=== PATIENT | female | born 1960 | race Caucasian/White ===

== ENCOUNTER 2018-09-09 00:29 | Outpatient (CLI) | payer OTHER, SELFPAY ==
--- NOTE | 2018-09-09 13:40 | DI.MAMMO_ITS ---
SYMPTOMS/DIAGNOSIS: SCREENING, Z12.31 MAMMOGRAM: Mammograms were interpreted according to the usual protocol including computer analysis with CAD system, tomosynthesis and C view imaging. The breasts are of moderate density with fairly symmetrical distribution of fibroglandular tissue. No dominant mass or clumped microcalcification is identified in either breast. Current examination is compared with the previous examinations including July 2015 and there has been no gross interval change in appearance in comparison with the previous studies. CONCLUSION: No specific evidence of malignancy at this time. Routine screening examinations are suggested at yearly intervals in this age group according to the ACS/ACR guidelines. Category 1, breast density category B. MQSA ASSESSMENT OF FINDINGS: Negative. Category 1. Patient will receive a letter notifying them of these results. BI-RADS category B. There are scattered areas of fibroglandular density.
== END 2018-09-09 00:49 ==
PROVIDERS: PCP Student in an Organized Health Care Education/Training Program; Visit Provider Student in an Organized Health Care Education/Training Program
DX: Z12.31 Encounter for screening mammogram for malignant neoplasm of breast (principal)
CPT/HCPCS: 77063; 77067

== ENCOUNTER 2018-11-30 12:39 | Outpatient (REF) | payer OTHER, SELFPAY | END 2018-11-30 12:59 | LOC: LBN 12:39 | PROVIDERS: PCP Student in an Organized Health Care Education/Training Program; Visit Provider Student in an Organized Health Care Education/Training Program | DX: R10.2 Pelvic and perineal pain (principal) | CPT/HCPCS: 87086 ==

== ENCOUNTER 2019-03-27 12:23 | Outpatient (REF) | payer OTHER, SELFPAY | END 2019-03-27 12:43 | LOC: LBN 12:23 | PROVIDERS: PCP Student in an Organized Health Care Education/Training Program; Visit Provider Nurse Practitioner | DX: R30.0 Dysuria (principal); R82.90 Unspecified abnormal findings in urine | CPT/HCPCS: 87077; 87086; 87186 ==

== ENCOUNTER 2019-04-03 12:05 | Outpatient (CLI) | payer OTHER, SELFPAY ==
[2019-04-03 12:25] LABS: Abs Immature Grans 0.02 k/cumm (0.0-0.09); Absolute Basophil Count 0.05 k/cumm (0.0-0.2); Absolute Eosinophil Count 0.45 k/cumm (0.0-0.7); Absolute Lymphocyte Count 0.72 k/cumm (1.2-3.4); Absolute Monocyte Count 0.46 k/cumm (0.11-0.7); Absolute Neutrophil Count 6.25 k/cumm (1.2-6.7); Basophils % 0.6; Eosinophils % 5.7; Immature Grans % 0.3; Lymphocytes % 9.1; Mean Corp. HGB Concentration 34.2 g/dL (32.0-36.0); Mean Corpuscular Hemoglobin 32.3 pg (27.0-33.0); Mean Corpuscular Volume 94.3 fL (80-95); Mean Platelet Volume 9.1 fL (8.0-11.0); Monocytes % 5.8; Neutrophils % 78.5; Platelet Count 278 x1000/uL (130-400); RBC 4.03 m/cumm (4.00-5.20); RBC Distribution Width 12.5 % (11.7-14.6); White Blood Cell Count 7.95 k/cumm (4.4-10.8)
[2019-04-05 21:21] LABS: Parvovirus B19 Ab, IgG Positive (Negative); Parvovirus B19 Ab, IgM Negative (Negative)
== END 2019-04-03 12:25 ==
PROVIDERS: PCP Student in an Organized Health Care Education/Training Program; Visit Provider Nurse Practitioner
DX: M25.50 Pain in unspecified joint (principal); R21 Rash and other nonspecific skin eruption; R50.9 Fever, unspecified
CPT/HCPCS: 36415; 85025; 86747

== ENCOUNTER 2019-12-21 10:39 | Outpatient (REF) | payer OTHER, SELFPAY ==
[2019-12-21 12:26] LABS: HCT 37.9 % (36.0-46.0); HGB 12.8 g/dL (12.0-15.5); Mean Corp. HGB Concentration 33.8 g/dL (32.0-36.0); Mean Corpuscular Hemoglobin 31.8 pg (27.0-33.0); Mean Platelet Volume 9.6 fL (8.0-11.0); Platelet Count 321 x1000/uL (130-400); RBC 4.03 m/cumm (4.00-5.20)
[2019-12-21 12:43] LABS: ALT 25 U/L (14-59); AST 15 U/L (15-37); Albumin 4.4 g/dL (3.4-5.0); Alkaline Phosphatase 76 U/L (46-116); Anion Gap 8.7 mmol/L (3-11); BUN 11 mg/dL (7-18); Bilirubin, Total 0.7 mg/dL (0.2-1.0); CO2 29.3 mmol/L (21.0-32.0); CREATININE 0.53 mg/dL (0.55-1.02); Calcium 9.5 mg/dL (8.5-10.1); Calculated LDL 184 mg/dL (<100); Chloride 103 mmol/L (98-107); Cholesterol 273 mg/dL (<200); Ferritin 94 ng/mL (8-252); Glucose 95 mg/dL (74-106); HDL Cholesterol 72 mg/dL (40-60); Sodium 141 mmol/L (136-145); TSH (W/Ref FT4) 1.52 uIU/mL (0.36-3.74); Total Protein 7.5 g/dL (6.4-8.2); Triglyceride 88 mg/dL (<150)
== END 2019-12-21 10:59 ==
LOC: LBO 10:39
PROVIDERS: PCP Student in an Organized Health Care Education/Training Program; Visit Provider Student in an Organized Health Care Education/Training Program
DX: Z13.220 Encounter for screening for lipoid disorders (principal); E86.0 Dehydration; I99.9 Unspecified disorder of circulatory system; R53.83 Other fatigue; G25.81 Restless legs syndrome; R68.89 Other general symptoms and signs
CPT/HCPCS: 80053; 80061; 85027; 82728; 83735; 84443

== ENCOUNTER 2020-06-25 03:37 | Outpatient (CLI) | payer OTHER, SELFPAY ==
--- NOTE | 2020-06-25 07:30 | DI.US_ITS ---
EXAM: US ABD PELV TRANSVAG NON-OB CLINICAL HISTORY: pelvic pressure 2 mos. S/p hys. Ovaries intact.abd pain,r10.9,mid to low TECHNIQUE: Ultrasound of the abdomen, pelvic, both abdmonal and tranvaginal was performed using sta ndard protocol. COMPARISON: No exams were available for comparison FINDINGS: LIVER: Normal. GALLBLADDER: No evidence of cholelithiasis. No evidence of wall thickening. No pericholecystic fluid identified. KIDNEYS: Kidneys are symmetric in size. No evidence of renal calculi. No evidence of hydronephrosis. No renal mass or cyst identified. BILIARY SYSTEM: Common bile duct measures 9 mm. It is well seen to the head of the pancreas. No sto enoc are visible. No intrahepatic biliary ductal dilation. MONROE'S SIGN: Negative. PANCREAS: Normal where visualized. SPLEEN: Not enlarged. ABDOMINAL AORTA AND IVC: Visualized portions normal caliber. ASCITES: None seen. UTERUS: Status post hysterectomy. OVARIES: Only seen transabdominally. Right: 2.0 x 1.3 x 1.0 cm Cyst or mass: None. Left: 2.1 x 0.8 x 1.3 cm Cyst or mass: None. DOPPLER: Color: Symmetric and uniform flow to both ovaries. No hyperemia. Duplex: Normal ovarian arterial waveforms visualized. CUL-DE-SAC: Free fluid: None. IMPRESSION: 1. Mild dilatation of the common bile duct. No visible obstructing stone or mass.. 2. Status post hysterectomy. 3. Unremarkable bilateral ovaries. DATA REPOSITORY:
== END 2020-06-25 03:57 ==
PROVIDERS: PCP Student in an Organized Health Care Education/Training Program; Visit Provider Nurse Practitioner
DX: R10.2 Pelvic and perineal pain (principal); R10.9 Unspecified abdominal pain
CPT/HCPCS: 76700; 76830; 76856

== ENCOUNTER 2020-11-08 01:38 | Outpatient (CLI) | payer OTHER, SELFPAY ==
[2020-11-08 20:40] LABS: COVID-19 RT-PCR UVMMC Result Negative (Negative)
== END 2020-11-08 01:58 ==
PROVIDERS: PCP Student in an Organized Health Care Education/Training Program; Visit Provider Nurse Practitioner
DX: Z11.52 Encounter for screening for COVID-19 (principal)
CPT/HCPCS: U0003

== ENCOUNTER 2021-01-16 03:11 | Outpatient (CLI) | payer OTHER, SELFPAY ==
[2021-01-16 22:20] LABS: COVID-19 RT-PCR UVMMC Result Negative (Negative)
== END 2021-01-16 03:12 | disposition home or self-care (01) ==
LOC: LBO 03:11
PROVIDERS: PCP Student in an Organized Health Care Education/Training Program; Visit Provider Nurse Practitioner
DX: Z20.822 Contact with and (suspected) exposure to COVID-19 (principal)
CPT/HCPCS: U0003

== ENCOUNTER 2021-02-20 03:29 | Outpatient (CLI) | payer OTHER, SELFPAY ==
[2021-02-20 08:42] LABS: ESR 3 mm//hr (0-30)
[2021-02-20 08:43] LABS: HCT 37.4 % (36.0-46.0); HGB 12.4 g/dL (11.2-15.7); MCHC 33.2 % (32.0-36.0); MCV 96.4 fL (80-95); MPV 9.6 fL (8.0-11.0); Platelet Count 274 10^3/uL (130-400); RBC 3.88 10^6/uL (3.93-5.22); RDW 12.6 % (11.7-14.6); WBC 4.69 10^3/uL (4.4-10.8)
[2021-02-20 12:33] LABS: ALT 35 U/L (14-59); AST 23 U/L (15-37); Albumin 4.1 g/dL (3.4-5.0); Alkaline Phosphatase 68 U/L (46-116); BUN 11 mg/dL (7-18); Bilirubin, Total 0.6 mg/dL (0.2-1.0); CREATININE 0.6 mg/dL (0.55-1.02); Calcium 9.3 mg/dL (8.5-10.1); Calculated LDL 167 mg/dL (<100); Chloride 105 mmol/L (98-107); Cholesterol 246 mg/dL (<200); Ferritin 68 ng/mL (8-252); Glucose 84 mg/dL (74-106); HDL Cholesterol 57 mg/dL (40-60); Potassium 4.2 mmol/L (3.5-5.1); Sodium 141 mmol/L (136-145); TSH (W/Ref FT4) 2.41 uIU/mL (0.36-3.74); Total Protein 7.2 g/dL (6.4-8.2); Triglyceride 113 mg/dL (<150); Vitamin B12 435 pg/mL (193-986)
[2021-02-20 12:44] LABS: Creatine Kinase 57 U/L (26-192)
[2021-02-20 12:47] LABS: C-Reactive Protein < 0.05 mg/dL (0.0-0.3)
[2021-02-21 15:00] LABS: ANA Interpretation Positive (Negative); ANA Titer Pattern 1:320 Homogeneous
== END 2021-02-20 03:30 | disposition home or self-care (01) ==
LOC: LBO 03:30
PROVIDERS: PCP Student in an Organized Health Care Education/Training Program; Visit Provider Nurse Practitioner
DX: E78.5 Hyperlipidemia, unspecified (principal); M25.50 Pain in unspecified joint; R25.2 Cramp and spasm; G25.81 Restless legs syndrome
CPT/HCPCS: 36415; 80053; 80061; 82550; 85027; 85652; 82607; 82728; 84443; 86038; 86140

== ENCOUNTER 2021-03-28 02:13 | Outpatient (CLI) | payer OTHER, SELFPAY ==
--- NOTE | 2021-03-28 07:30 | DI.MAMMO_ITS ---
Exam(s) MAMMO SCREENING EXAM: MAMMO SCREENING CLINICAL HISTORY: screening, Z12.39. TECHNIQUE: Bilateral full field digital CC and MLO mammographic images were obtained with 3D tomosyn thesis and utilizing computer aided detection (CAD). COMPARISON: Prior mammograms dating back to 2011, the most recent being August 2018. FINDINGS: There has been no significant change in the appearance and distribution of the fibroglandular tissue. Asymmetric tissue upper-outer quadrant right breast is unchanged from prior studies. There are no new spiculated masses nor malignant appearing microcalcification groups. There is no new significant architectural distortion nor skin thickening-retraction. IMPRESSION: No radiographic evidence of malignancy. Stable benign findings BI-RADS Category 2 - Benign Findings Breast Density - Category B - Scattered areas of fibroglandular density Breast density Category C or D implies that the patient has dense breast tissue. Dense breast tissue can make it harder to find cancer on a mammogram. Dense breast tissue is also associated with an incr eased risk of breast cancer. This information about the result of the mammogram report was provided to the patient to raise their awareness. Use this report when you speak with the patient about their risks for breast cancer, which includes their family history. At that time, you may recommend additional screening tests (Ultrasoun d or MRI) as these tests may add significant information. A negative radiographic report should not delay biopsy if a dominant or clinically suspicious mass is present. Up to ten percent of cancers are not identified on mammography. A negative report may reinforce clinical impression. Adenosis and dense breasts may obscure an underlying neoplasm. False positive reports average 6 to 10%. Patient will receive a letter notifying them of these results.
== END 2021-03-28 02:33 ==
PROVIDERS: PCP Student in an Organized Health Care Education/Training Program; Visit Provider Nurse Practitioner
DX: Z12.31 Encounter for screening mammogram for malignant neoplasm of breast (principal)
CPT/HCPCS: 77063; 77067

== ENCOUNTER → 2022-03-21 11:11 | Outpatient (CLI) | payer OTHER, SELFPAY ==
--- NOTE | 2022-03-21 | DI.RAD_ITS ---
Exam(s) XR CHEST 2V PA LATERAL EXAM: XR CHEST 2V PA LATERAL CLINICAL HISTORY: Wheezing, SOB, r/o pneumonia.. TECHNIQUE: 2D digital imaging was performed. COMPARISON: CR CHEST 2 VIEWS PA,LAT from 11/16/2017 FINDINGS: 2 views: Heart size is normal. The mediastinum is not widened. Lungs are clear. No infiltrates nor pleural effusions. IMPRESSION: No acute pulmonary findings. DATA REPOSITORY: RADIATION DOSE DELIVERED:
--- NOTE | 2022-03-21 11:43 | DI.VRAD_ITS ---
PROCEDURE INFORMATION: Exam: XR Chest Exam date and time: 03/21/2022 11:20 AM Age: 61 years old Clinical indication: Cough and shortness of breath and wheezing TECHNIQUE: Imaging protocol: XR of the chest. Views: 2 views. COMPARISON: CR CHEST 2 VIEWS PA,LAT 11/16/2017 9:56 PM FINDINGS: Lungs: Unremarkable. No consolidation. Pleural spaces: Unremarkable. No pleural effusion. No pneumothorax. Heart/Mediastinum: Unremarkable. No cardiomegaly. Bones/joints: Unremarkable. IMPRESSION: No acute findings. Dictated and Authenticated by: Tank Bartholomew MD. Ordering:YOANA Carvajal MD
== END ==
PROVIDERS: PCP Student in an Organized Health Care Education/Training Program; Visit Provider Nurse Practitioner
DX: R06.02 Shortness of breath (principal); R06.2 Wheezing
CPT/HCPCS: 71046

== ENCOUNTER → 2022-05-18 01:45 | Outpatient (CLI) | payer OTHER, SELFPAY ==
--- NOTE | 2022-05-18 06:45 | DI.MAMMO_ITS ---
Exam(s) MAMMO SCREENING EXAM: MAMMO SCREENING CLINICAL HISTORY: screening,z12.39 TECHNIQUE: Mammograms were interpreted according to the usual protocol including computer analysis w [employer] CAD system, tomosynthesis and C-view imaging. COMPARISON: FINDINGS: The breasts are of moderate density with fairly symmetrical distribution of fibroglandular tissue. N o dominant mass or clumped microcalcification is identified in either breast. The current examinatio n is compared with previous examinations including March 2021 and there has been no gross interval gaudencio nge in appearance in comparison with the prior studies. IMPRESSION: No specific evidence of malignancy at this time. Routine screening examinations are suggested at yea rly intervals in this age group according to the ACS ACR guidelines. BI-RADS Category 1 - Negative Breast Density - Category B - Scattered areas of fibroglandular density
== END ==
PROVIDERS: PCP Student in an Organized Health Care Education/Training Program; Visit Provider Student in an Organized Health Care Education/Training Program
DX: Z12.31 Encounter for screening mammogram for malignant neoplasm of breast (principal)
CPT/HCPCS: 77063; 77067

== ENCOUNTER 2022-05-18 03:48 | Outpatient (CLI) | payer OTHER, SELFPAY ==
[2022-05-18 08:58] LABS: HCT 36.3 % (36.0-46.0); HGB 12.6 g/dL (11.2-15.7); MCH 32.8 pg (27.0-33.0); MCHC 34.7 % (32.0-36.0); MCV 95 fL (80-95); MPV 9.6 fL (8.0-11.0); Platelet Count 287 10^3/uL (130-400); RBC 3.84 10^6/uL (3.93-5.22); RDW 12.3 % (11.7-14.6); RDW-SD 42.3 fL; WBC 3.92 10^3/uL (4.4-10.8)
[2022-05-18 09:50] LABS: Iron 64 ug/dL (50-170); Total Iron Binding Capacity 319 ug/dL (250-450); Transferrin Sat 20 % (15-50)
[2022-05-18 10:15] LABS: Vitamin D 25 Total 52.2 ng/mL (30-100)
[2022-05-18 10:54] LABS: ALT 25 U/L (14-59); AST 15 U/L (15-37); Albumin 4.2 g/dL (3.4-5.0); Alkaline Phosphatase 71 U/L (46-116); Anion Gap 8.9 mmol/L (3-11); BUN 11 mg/dL (7-18); Bilirubin, Total 0.6 mg/dL (0.2-1.0); CO2 27.1 mmol/L (21.0-32.0); CREATININE 0.7 mg/dL (0.55-1.02); Calcium 9.3 mg/dL (8.5-10.1); Calculated LDL 168 mg/dL (<100); Chloride 104 mmol/L (98-107); Cholesterol 253 mg/dL (<200); Glucose 88 mg/dL (74-106); HDL Cholesterol 64 mg/dL (40-60); Potassium 3.4 mmol/L (3.5-5.1); Sodium 140 mmol/L (136-145); TSH (W/Ref FT4) 3.31 uIU/mL (0.36-3.74); Total Protein 7.6 g/dL (6.4-8.2); Triglyceride 108 mg/dL (<150); Vitamin B12 582 pg/mL (193-986)
[2022-05-18 10:55] LABS: Folate > 20.0 ng/mL (8.6-20.0)
== END 2022-05-18 03:49 | disposition home or self-care (01) ==
LOC: LBO 03:49
PROVIDERS: PCP Student in an Organized Health Care Education/Training Program; Visit Provider Student in an Organized Health Care Education/Training Program
DX: F41.1 Generalized anxiety disorder (principal); G47.00 Insomnia, unspecified; R53.83 Other fatigue; G25.81 Restless legs syndrome; G47.9 Sleep disorder, unspecified; K90.9 Intestinal malabsorption, unspecified; Z82.49 Family history of ischemic heart disease and other diseases of the circulatory system; Z86.2 Personal history of diseases of the blood and blood-forming organs and certain disorders involving the immune mechanism; Z13.220 Encounter for screening for lipoid disorders; G62.9 Polyneuropathy, unspecified; E87.8 Other disorders of electrolyte and fluid balance, not elsewhere classified; Z91.89 Other specified personal risk factors, not elsewhere classified
CPT/HCPCS: 36415; 80053; 80061; 82306; 85027; 82607; 82746; 83540; 83550; 84443

== ENCOUNTER 2022-09-25 06:51 | Emergency (ER) | payer OTHER, SELFPAY ==
[2022-09-25 07:00] VITALS: BP 102/70; PULSE 94; RESP 22; TEMP 37.2; O2SAT 96
--- NOTE | 2022-09-25 07:48 | ED.GENADUL_ITS ---
Discharge Plan Disposition Patient Disposition: Home Discharge Details Clinical Impression: Influenza A Primary Care Provider: Sejal Givens ED Provider: Gary Antunez Home Meds and New Rx's Prescriptions: No Action ascorbate calcium (vitamin C) 500 mg tablet 1 g PO DAILY lysine [L-Lysine] 500 mg tablet 1,000 mg PO DAILY Rx Instructions: cold sore prevention L-Glutamine 500 mg capsule 1,000 mg PO DAILY Rx Instructions: gut health Saccharomyces boulardii [Daily Probiotic (S. boulardii)] 250 mg capsule 250 mg PO DAILY Rx Instructions: refrigerated red yeast rice 600 mg capsule 1,200 mg PO DAILY Rx Instructions: give with meal/snack Balanced B-100 Complex 100 mg tablet extended release PO Natural Vegetable (psyllium) Powder 1 tbsp PO DAILY Rx Instructions: mix into at least 8 oz of water or juice before administering fluticasone propionate [Flonase Allergy Relief] 50 mcg/actuation spray,suspension 2 spray intranasal DAILY PRN (Reason: allergy symptoms) Rx Instructions: administer into each nostril lorazepam 1 mg tablet 1 mg PO DAILY PRN (Reason: panic episode) Qty: 20 1RF cholecalciferol (vitamin D3) 50 mcg (2,000 unit) tablet 2,000 unit PO DAILY Label Comments: 12/21/19- takes between 2000-4000units daily. valacyclovir 1 gram tablet 2,000 mg PO BID PRN (Reason: cold sores) Qty: 40 3RF trazodone 100 mg tablet 100 mg PO HS PRN (Reason: sleep) Qty: 90 3RF Discharge Instructions Instructions: H1N1 Influenza (ED) Additional Instructions: Make sure you suppress the fever with Tylenol or Motrin. Please push fluids as much as possible. You want to remain well-hydrated. Medical Decision Making Medical Records Medical records narrative: Patient is a positive for influenza a. She is approximately 3-1/2 days into the illness. I had a discussion with her regarding the pros and cons of Tamiflu at this point. I do not believe and she agrees and she is Tamiflu candidate. She has for cough suppressant. I reiterated that cough is the way the body fights infection. Chest x-ray does not reveal any abnormalities. She will be sent home with supportive care. Sign Out No HPI General Date/Time Provider Initiated Documentation: 09/25/22 07:00 . HPI Narrative: 63-year-old lady presented to the emergency room for evaluation of malaise and illness x3 days. She states that 3 days ago she started coughing and developed some fevers. She is also developed some shortness of breath since yesterday. She is COVID vaccinated as well as influenza vaccinated. She actually got sick proxy 1 month ago when her grandchildren came to visit her but he had some kind of upper respiratory syndrome. She cough for approximately 3 weeks and that tapered off but restarted 3 days ago. She is also fatigued. Mild lightheaded. She states that she has been coughing so much that her abdominal muscles now hurt and she states that she may have pulled her back. She has taken some ibuprofen for the fevers which helps. Her p.o. intake has decreased. She states she is trying to keep up with fluids Related Data Home Medications Medication Instructions Recorded Confirmed cholecalciferol (vitamin D3) 50 2,000 unit PO DAILY 12/21/19 09/25/22 mcg (2,000 unit) tablet valacyclovir 1 gram tablet 2,000 mg PO BID PRN cold sores #40 02/13/21 09/25/22 tabs Saccharomyces boulardii 250 mg 250 mg PO DAILY 04/03/21 09/25/22 capsule (Daily Probiotic (S. boulardii)) ascorbate calcium (vitamin C) 500 1 g PO DAILY 04/03/21 09/25/22 mg tablet glutamine 500 mg capsule 1,000 mg PO DAILY 04/03/21 09/25/22 (L-Glutamine) lysine 500 mg tablet (L-Lysine) 1,000 mg PO DAILY 04/03/21 09/25/22 psyllium (Natural Vegetable 1 tbsp PO DAILY 04/03/21 09/25/22 (psyllium) oral powder) red yeast rice 600 mg capsule 1,200 mg PO DAILY 04/03/21 09/25/22 vit B complex 100 combo no.2 100 tab PO 04/03/21 05/04/22 mg tablet,extended release (Balanced B-100 Complex) trazodone 100 mg tablet 100 mg PO HS PRN sleep #90 tabs 02/19/22 09/25/22 fluticasone propionate 50 2 spray intranasal DAILY PRN 07/01/22 12/09/22 mcg/actuation nasal allergy symptoms spray,suspension (Flonase Allergy Relief) lorazepam 1 mg tablet 1 mg PO DAILY PRN panic episode 04/20/22 09/25/22 #20 tabs Previous Rx's Medication Instructions Recorded valacyclovir 1 gram tablet 2,000 mg PO BID PRN cold sores #40 02/13/21 tabs trazodone 100 mg tablet 100 mg PO HS PRN sleep #90 tabs 02/19/22 lorazepam 1 mg tablet 1 mg PO DAILY PRN panic episode 04/20/22 #20 tabs Allergies Allergy/AdvReac Type Severity Reaction Status Date / Time No Known Allergies Allergy Verified 09/25/22 07:05 General Stated Complaint: RespSymp WILLY: 3 Review of Systems Narrative: Constitutional positive for fatigue and malaise positive for fevers and chills HEENT mild sore throat Cardiovascular no palpitations no chest pain Respiratory see HPI GI no nausea no vomiting. Abdominal pain no diarrhea no dysuria no frequency no hematuria MSK myalgias and arthralgias Skin no rash Neuro mild headaches. No paresthesias no focal weakness Psych mild anxiety no depression Endo no unexplained weight gain or weight loss Hematological not on blood thinners no easy bleeding. PFSH All Active Problems (Updated 09/25/22 @ 08:29 by Gary Antunez MD) Influenza A (Acute) At risk for osteoporosis (Acute) Neuropathy (Acute) Malabsorption (Acute) Family history of cardiovascular disease (Acute) Insomnia (Acute) Long Hx .. with some relief w/ Trazadone, but no longer working. Restless sleeper (Acute) Dizziness (Acute) Nasal congestion (Acute) Facial pressure (Acute) Facial pain (Acute) Anxiety state, unspecified (Acute) Hx SSRI (Prozac) w/ poor tolerance .. 1/2 dose lorazepam helping with rest/sleep .. 1-2/week. Complicated grieving (Acute) Brother 04/2021, after months of difficult ([facility] drove to [facility] weekly x months). 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 ~2005 History of tonsillectomy and adenoidectomy Vaginal hysterectomy (10/18/02) not exact date-LH Family History Mother , lung ca at age 57. Lung cancer Father , [place] at age 66. Diabetes Heart disease Hypertension Congestive heart failure Social History (Updated 04/17/22 @ 09:45 by Melany Elizabeth RN) Smoking/Tobacco Use Status: Former Tobacco Use Quit Date: 10/18/93 Pack-years: 18 Tobacco: How many years used: 18 Smoking risk assessment performed?: Yes Alcohol Intake: current Alcohol Intake frequency: a few times a month Drug use: Never Substance use type: does not use Adopted: No Caregiver/Support person: No Foster care: No Household members: spouse and other Details: [id number] Housing: house Number of Children: 3 number of grandchildren: 4 Communication Needs: Corrective Lenses Education Level: 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 Do you need help understanding health information?: Never Pets and animals: Yes Pets and animals: dog(s) Sexually active: Yes Do you think of yourself as: bisexual Current gender identity: female What is your relationship status?: How often do you talk on the phone with friends or family?: once per week How often do you get together with friends or relatives?: three or more times per week Do you belong to any clubs or organized social groups?: no Panel score (0-1 are the most socially isolated patients): 2 What type of physical activity do you participate in: walking and yoga Duration: 30-45 minutes/day Frequency: 3-4 times per week Esha/Nondenominational: None Special esha needs: No Seatbelt use: always Helmet use: Yes Drive intox or ride w/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: No Working smoke detector in home: Yes Fire extinguisher in home: Yes Carbon monox detector in home: Yes Do you feel safe at home: Yes Do you feel safe in your relationship?: Yes Exam Narrative Exam Narrative: General: A,A Ox3, Calm, no apparent distress, well developed, pleasant and cooperative Head Size/Shape: normocephalic, atraumatic Eyes Pupils: PERRLA Extraocular Mobility: intact and symmetrical Conjunctiva: non-injected, anicteric, no discharge Ears, Nose, Throat Nares: patent bilaterally Oral Cavity: moist Neck: supple Respiratory Respiratory Effort: no dyspnea Auscultation: clear to auscultation bilaterally, normal breath sounds, no wheezing, no rales/crackles Cardiovascular Heart Auscultation: regular rate and rhythm Abdomen Inspection and Palpation: soft, non-tender, non-distended, no hepatosplenomegaly Musculoskeletal System Joints, Bones, and Muscles: no deformities Extremities: warm and well-perfused, no cyanosis, capillary refill <2 seconds Skin Skin Inspection: no rash, no lesions, no bruising Neurological Motor: normal tone, normal strength, moving all extremities equally Psychiatric: good insight, good judgement, normal mood and affect Course Vital Signs Vital signs: Vital Signs Temperature 37.2 C 09/25/22 07:00 Pulse 94 H 09/25/22 07:00 Respiratory Rate 22 09/25/22 07:00 Blood Pressure 102/70 09/25/22 07:00 Pulse Oximetry 96 09/25/22 07:00 Temperature 37.2 C 09/25/22 07:00 Temperature Source Temporal Artery Scan 09/25/22 07:00 Pulse 94 H 09/25/22 07:00 Respiratory Rate 22 09/25/22 07:00 Respiratory Effort Non-Labored 09/25/22 07:07 Respiratory Depth Normal 09/25/22 07:07 Blood Pressure 102/70 09/25/22 07:00 Blood Pressure Position Sitting 09/25/22 07:00 Pulse Oximetry 96 09/25/22 07:00 Oxygen Delivery Method Room Air 09/25/22 07:00 Oxygen Flow Rate 0 09/25/22 07:00 Pain Level 0 09/25/22 07:00
[2022-09-25 08:01] LABS: COVID-19 PCR Negative (Negative); Influenza B PCR Negative (Negative); RSV PCR Negative (Negative)
[2022-09-25 08:03] LABS: Influenza A PCR Positive (Negative)
--- NOTE | 2022-09-25 08:20 | DI.RAD_ITS ---
Exam(s) XR PORTABLE CHEST AP EXAM: XR PORTABLE CHEST AP CLINICAL HISTORY: cough TECHNIQUE: 2D digital imaging was performed of the chest. One image was obtained. An AP view was ob tained. COMPARISON: CR,XR XR CHEST 2V PA LATERAL from 03/21/2022 FINDINGS: MEDIASTINUM: Normal. HEART: Normal. PULMONARY VASCULATURE: Normal. LUNGS: Clear. PLEURAL SPACE: No pleural effusion or pneumothorax. BONE:Within normal limits for the patient's age. OTHER FINDINGS:Normal. IMPRESSION: No acute pulmonary findings. DATA REPOSITORY: RADIATION DOSE DELIVERED:
== END 2022-09-25 08:37 | disposition home or self-care (01) ==
PROVIDERS: Student in an Organized Health Care Education/Training Program; Emergency Provider Emergency Medicine; PCP Student in an Organized Health Care Education/Training Program
DX: J10.1 Influenza due to other identified influenza virus with other respiratory manifestations (principal); Z20.822 Contact with and (suspected) exposure to COVID-19
CPT/HCPCS: 87637; 99283; 71045; 99282

== ENCOUNTER 2022-11-05 11:57 | Outpatient (REF) | payer OTHER, SELFPAY ==
[2022-11-05 15:25] LABS: Abs Immature Grans 0.01 10^3/uL (0.0-0.06); Absolute Basophil Count 0.05 10^3/uL (0.0-0.2); Absolute Eosinophil Count 0.07 10^3/uL (0.0-0.7); Absolute Lymphocyte Count 1.98 10^3/uL (1.2-3.4); Absolute Monocyte Count 0.28 10^3/uL (0.1-0.8); Absolute Neutrophil Count 2.16 10^3/uL (1.2-6.7); Basophils % 1.1; Eosinophils % 1.5; HCT 37.4 % (36.0-46.0); HGB 12.7 g/dL (11.2-15.7); Immature Grans % 0.2; Lymphocytes % 43.5; MCH 32.2 pg (27.0-33.0); MCV 95 fL (80-95); MPV 9.9 fL (8.0-11.0); Monocytes % 6.2; Neutrophils % 47.5; Platelet Count 356 10^3/uL (130-400); RBC 3.94 10^6/uL (3.93-5.22); RDW 12.5 % (11.7-14.6); RDW-SD 42.9 fL; WBC 4.55 10^3/uL (4.4-10.8)
[2022-11-05 15:43] LABS: Iron 86 ug/dL (50-170)
[2022-11-05 15:49] LABS: ALT 25 U/L (14-59); AST 28 U/L (15-37); Albumin 4.4 g/dL (3.4-5.0); Alkaline Phosphatase 78 U/L (46-116); Anion Gap 7.6 mmol/L (3-11); BUN 8 mg/dL (7-18); Bilirubin, Direct 0.2 mg/dL (0.0-0.2); Bilirubin, Total 0.7 mg/dL (0.2-1.0); CO2 29.4 mmol/L (21.0-32.0); CREATININE 0.7 mg/dL (0.55-1.02); Calcium 9.8 mg/dL (8.5-10.1); Chloride 103 mmol/L (98-107); Estimated GFR 97.72 (mL/min/1.73m2); Glucose 99 mg/dL (74-106); Sodium 140 mmol/L (136-145); Total Protein 8.3 g/dL (6.4-8.2)
[2022-11-06 15:51] LABS: dsDNA Ab, IgG <12.3 IU/mL (<30.0)
[2022-11-06 20:18] LABS: Lab Add On Test DONE
[2022-11-06 20:29] LABS: Total Iron Binding Capacity 326 ug/dL (250-450)
[2022-11-06 20:43] LABS: Ferritin 95 ng/mL (8-252)
[2022-11-09 13:59] LABS: ANA Interpretation Positive (Negative); ANA Titer Pattern 1:160 Homogeneous
== END 2022-11-05 11:58 | disposition home or self-care (01) ==
LOC: LBN 11:57
PROVIDERS: PCP Student in an Organized Health Care Education/Training Program; Visit Provider Student in an Organized Health Care Education/Training Program
DX: G25.81 Restless legs syndrome (principal); G62.9 Polyneuropathy, unspecified; K90.9 Intestinal malabsorption, unspecified; R25.2 Cramp and spasm; R68.89 Other general symptoms and signs; Z82.49 Family history of ischemic heart disease and other diseases of the circulatory system; D84.9 Immunodeficiency, unspecified; J40 Bronchitis, not specified as acute or chronic; R06.02 Shortness of breath
CPT/HCPCS: 80048; 80076; 82728; 83540; 83550; 85025; 86038; 86225

== ENCOUNTER 2022-11-09 03:08 | Outpatient (CLI) | payer OTHER, SELFPAY ==
[2022-11-09] MEDS: Albuterol HFA 18 GM 200 PUFF INH IH (09:02)
[2022-11-09] MEDS: Inhaler, Assist Device 1 EACH MC (09:02)
--- NOTE | 2022-11-09 11:32 | W.PFT ---
Date of service: 11/09/22 Time of Service: 08:07 Pulmonary Function Test Result Requesting Provider Sejal Givens Indications: Bronchitis Interpretation Spirometry: There is no airflow limitation. No significant bronchodilator response. Lung Volumes: Normal lung volumes Diffusion Capacity: Normal diffusion Airway Pressure: Normal airways resistance Impression Normal pulmonary function testing. Clinical Correlation therefore is recommended.
== END 2022-11-09 03:09 | disposition home or self-care (01) ==
LOC: RT 03:08
PROVIDERS: PCP Student in an Organized Health Care Education/Training Program; Visit Provider Student in an Organized Health Care Education/Training Program
DX: J47.9 Bronchiectasis, uncomplicated (principal); R06.02 Shortness of breath; Z87.891 Personal history of nicotine dependence
CPT/HCPCS: 94060; 94726; 94729

== ENCOUNTER 2023-03-26 00:16 | Outpatient (CLI) | payer OTHER, SELFPAY ==
--- NOTE | 2023-03-26 09:00 | DI.RAD_ITS ---
Exam(s) XR KNEE RT 3V AP,LAT,FERNANDA EXAM: XR KNEE RT 3V AP,LAT,FERNANDA CLINICAL HISTORY: new rt knee ain,m25.561. TECHNIQUE: 2D digital imaging was performed of the right knee. Three views obtained. AP, lateral an d PA tunnel views were obtained. COMPARISON: No exams were available for comparison FINDINGS: BONES: No acute fracture is present. No bony destructive lesion is seen. JOINTS: The knee is normally aligned. No joint effusion is seen. SOFT TISSUE: Normal. IMPRESSION: Unremarkable radiographs of the right knee. DATA REPOSITORY: RADIATION DOSE DELIVERED:
== END 2023-03-26 00:36 ==
LOC: DI 00:17
PROVIDERS: PCP Student in an Organized Health Care Education/Training Program; Visit Provider Nurse Practitioner
DX: M25.561 Pain in right knee (principal)
CPT/HCPCS: 73562